=== PATIENT | male | born 1995 | race Caucasian/White ===

== ENCOUNTER 2021-11-08 17:36 | Emergency (ER) | payer SELFPAY ==
[~2021-11-08] VITALS: Ht 182.9 cm; Wt 84.1 kg
[2021-11-08 18:39] VITALS: BP 145/88; PULSE 80; TEMP 98.6
== END 2021-11-08 18:39 | disposition home or self-care (01) ==
LOC: COL.ER 17:36
DX: S16.1XXA Strain of muscle, fascia and tendon at neck level, initial encounter (principal); V49.40XA Driver injured in collision with unspecified motor vehicles in traffic accident, initial encounter